=== PATIENT | male | born 1980 | race Native Hawaiian/Other Pacific Islander ===

== ENCOUNTER 2018-12-21 12:06 | Emergency (ER) | payer SELFPAY ==
[~2018-12-21] VITALS: Ht 172.7 cm; Wt 113.4 kg
[2018-12-21] MEDS ORDERED: REMERON (12:31)
[2018-12-21] MEDS ORDERED: BUSPIRONE HCL (12:32)
--- NOTE | 2018-12-21 12:39 | ED Cough/URI ---
General Chief Complaint: Cough/Cold/Flu Symptoms Stated Complaint: COUGH, LEFT SIDED Source: patient, family Exam Limitations: no limitations History of Present Illness Date Seen by Provider: Dec 21, 2018 Time Seen by Provider: 12:25 Initial Comments 38 yr old with hx of mild RT sx over the past few days but had improved until cough worsened yesterday. Now noting some increased congestion and pleuritic left sided chest pain. Not exertional. No fever/chills. Heavy cigarette smoker. No hx of CAD or other medical conditions other than bipolar disease. Timing/Duration: yesterday Severity/Quality: productive cough, blood streaked sputum Prior Episodes/Possible Cause: no prior episodes Modifying Factors: Improves With Activity, Improves With Coughing Associated Symptoms: chest pain/soreness Allergies and Home Medications Allergies Coded Allergies: No Known Drug Allergies (Unverified , 12/21/18) Patient Home Medication List Home Medication List Reviewed: Yes Review of Systems Review of Systems Constitutional: see HPI EENTM: see HPI; No blurred vision, No double vision, No throat pain Respiratory: see HPI, cough; No hemoptysis, No short of breath, No stridor Cardiovascular: see HPI; No edema, No palpitations, No syncope Gastrointestinal: no symptoms reported; No abdominal pain, No diarrhea, No nausea Genitourinary: no symptoms reported; No hematuria, No pain Musculoskeletal: no symptoms reported Skin: no symptoms reported Psychiatric/Neurological: See HPI; Denies Paresthesia, Denies Seizure, Denies Tingling Hematologic/Lymphatic: See HPI; Denies Anemia, Denies Blood Clots, Denies Other Immunological/Allergic: denies see HPI, denies transplant Past Hkqqxpj-Ppoldi-Bsqtup Hx Patient Social History Smoking Status: Heavy Tobacco Smoker Recent Foreign Travel: No Contact w/Someone Who Travel: No Physical Exam Vital Signs - First Documented 12/21/18 12:17 Temp 97.9 Pulse 93 Resp 20 B/P (MAP) 130/79 (96) Pulse Ox 98 O2 Delivery Room Air Capillary Refill : Height: '" Weight: lbs. oz. kg; BMI Method: General Appearance: WD/WN, no apparent distress Eyes: Bilateral Eye Normal Inspection, Bilateral Eye PERRL, Bilateral Eye EOMI HEENT: PERRL/EOMI, normal ENT inspection, TMs normal, pharynx normal Neck: non-tender, full range of motion, supple, normal inspection, carotid bruit Respiratory: no respiratory distress, no accessory muscle use, decreased breath sounds, rhonchi (bilaterally) Cardiovascular: normal peripheral pulses, regular rate, rhythm, no edema, no gallop, no JVD, no murmur Gastrointestinal: normal bowel sounds, non tender, soft, no organomegaly, no pulsatile mass Extremities: normal range of motion, non-tender, normal inspection, no pedal edema, no calf tenderness, normal capillary refill, pelvis stable 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, no motor/sensory deficits, alert, normal mood/affect, oriented x 3 Skin: normal color, warm/dry, cyanosis, cool, diaphoresis, damp Lymphatic: no adenopathy Progress/Results/Core Measures Suspected Sepsis SIRS Temperature: Pulse: Respiratory Rate: Laboratory Tests 12/21/18 13:35: White Blood Count 11.7H Blood Pressure / Mean: Laboratory Tests 12/21/18 13:35: Creatinine 0.89, Platelet Count 214 Results/Orders Lab Results Laboratory Tests Test 12/21/18 13:35 Range/Units White Blood Count 11.7 H 4.3-11.0 10^3/uL Red Blood Count 5.02 4.35-5.85 10^6/uL Hemoglobin 15.2 13.3-17.7 G/DL Hematocrit 45 40-54 % Mean Corpuscular Volume 90 80-99 FL Mean Corpuscular Hemoglobin 30 25-34 PG Mean Corpuscular Hemoglobin Concent 34 32-36 G/DL Red Cell Distribution Width 12.3 10.0-14.5 % Platelet Count 214 130-400 10^3/uL Mean Platelet Volume 11.4 H 7.4-10.4 FL Neutrophils (%) (Auto) 64 42-75 % Lymphocytes (%) (Auto) 27 12-44 % Monocytes (%) (Auto) 5 0-12 % Eosinophils (%) (Auto) 4 0-10 % Basophils (%) (Auto) 1 0-10 % Neutrophils # (Auto) 7.5 1.8-7.8 X 10^3 Lymphocytes # (Auto) 3.1 1.0-4.0 X 10^3 Monocytes # (Auto) 0.5 0.0-1.0 X 10^3 Eosinophils # (Auto) 0.4 H 0.0-0.3 10^3/uL Basophils # (Auto) 0.1 0.0-0.1 10^3/uL Sodium Level 142 135-145 MMOL/L Potassium Level 4.2 3.6-5.0 MMOL/L Chloride Level 104 98-107 MMOL/L Carbon Dioxide Level 23 21-32 MMOL/L Anion Gap 15 H 5-14 MMOL/L Blood Urea Nitrogen 9 7-18 MG/DL Creatinine 0.89 0.60-1.30 MG/DL Estimat Glomerular Filtration Rate > 60 BUN/Creatinine Ratio 10 Glucose Level 125 H 70-105 MG/DL Calcium Level 9.1 8.5-10.1 MG/DL My Orders Orders - SHORTY NEAL MD Basic Metabolic Panel (12/21/18 12:31) Cbc With Automated Diff (12/21/18 12:31) Chest Pa/Lat (2 View) (12/21/18 12:31) Ekg Tracing (12/21/18 12:31) Vital Signs/I&O 12/21/18 12:17 Temp 97.9 Pulse 93 Resp 20 B/P (MAP) 130/79 (96) Pulse Ox 98 O2 Delivery Room Air Capillary Refill : Progress Note : Time: 14:35 Progress Note Discussed findings with pt and parents. Will treat bronchitis with abx and cough med. ECG Initial ECG Impression Date: Dec 21, 2018 Initial ECG Impression Time: 12:55 Initial ECG Rate: 77 Initial ECG Rhythm: Normal Sinus Initial ECG Intervals: Normal Initial ECG Impression: Normal Initial ECG Comparisson: No Previous ECG Available Diagnostic Imaging Diagonstic Imaging: Xray Plain Films/CT/US/NM/MRI: chest Comments CHEST PA/LAT (2 VIEW) INDICATION: Left-sided pain. FINDINGS: The lungs are clear. The heart and vessels are normal. No effusion or pneumothorax. IMPRESSION: No acute appearing abnormality. Dictated on workstation # [id number] Dict: 12/21/18 1302 Trans: 12/21/18 1304 [id number] Interpreted by: HARLEEN DON Electronically signed by: Departure Impression Primary Impression: Bronchitis Disposition: 01 HOME, SELF-CARE Condition: Improved Departure-Patient Inst. Decision time for Depature: 14:36 Patient Instructions: Cough, Adult (DC), Acute Bronchitis, Adult (DC) Scripts D-Methorphan Hb/Prometh HCl (Promethazine-Dm Syrup) 118 Ml Syrup 10 ML PO QID PRN for cough, #120 ML Prov: SHORTY NEAL MD 12/21/18 Amoxicillin (Amoxicillin) 500 Mg Capsule 500 MG PO TID, #21 CAP 0 Refills Prov: SHORTY NEAL MD 12/21/18 SHORTY NEAL MD Dec 21, 2018 12:39
--- NOTE | 2018-12-21 13:05 | Diagnostic Imaging Report ---
INDICATION: Left-sided pain. FINDINGS: The lungs are clear. The heart and vessels are normal. No effusion or pneumothorax. IMPRESSION: No acute appearing abnormality. Dictated by: Dictated on workstation # [id number]
[2018-12-21 13:52] LABS: HEMATOCRIT 45 % (40-54); HEMOGLOBIN 15.2 G/DL (13.3-17.7); MEAN CORPUSCULAR HEMOGLOBIN 30 PG (25-34); MEAN CORPUSCULAR HGB CONC 34 G/DL (32-36); MEAN CORPUSCULAR VOLUME 90 FL (80-99); WHITE BLOOD COUNT 11.7 10^3/uL (4.3-11.0)
[2018-12-21 13:53] LABS: BASOPHILS % (AUTO) 1 % (0-10); EOSINOPHILS % (AUTO) 4 % (0-10); LYMPHOCYTES # (AUTO) 3.1 X 10^3 (1.0-4.0); LYMPHOCYTES % (AUTO) 27 % (12-44); MEAN PLATELET VOLUME 11.4 FL (7.4-10.4); MONOCYTES # (AUTO) 0.5 X 10^3 (0.0-1.0); MONOCYTES % (AUTO) 5 % (0-12); NEUTROPHILS # (AUTO) 7.5 X 10^3 (1.8-7.8); NEUTROPHILS % (AUTO) 64 % (42-75); PLATELET COUNT 214 10^3/uL (130-400); RED CELL DISTRIBUTION WIDTH 12.3 % (10.0-14.5)
[2018-12-21 13:54] LABS: BASOPHILS # (AUTO) 0.1 10^3/uL (0.0-0.1); EOSINOPHILS # (AUTO) 0.4 10^3/uL (0.0-0.3)
[2018-12-21 14:20] LABS: CARBON DIOXIDE 23 MMOL/L (21-32); CHLORIDE 104 MMOL/L (98-107); POTASSIUM 4.2 MMOL/L (3.6-5.0); SODIUM 142 MMOL/L (135-145)
[2018-12-21 14:21] LABS: BUN/CREATININE RATIO 10; CALCIUM 9.1 MG/DL (8.5-10.1); CREATININE SERUM 0.89 MG/DL (0.60-1.30); GFR ESTIMATED > 60; GLUCOSE 125 MG/DL (70-105)
[2018-12-21] MEDS ORDERED: AMOX500C2 PO (14:38)
[2018-12-21] MEDS ORDERED: D-ME118S7 PO (14:38)
[2018-12-21 14:59] VITALS: BP 128/80
== END 2018-12-21 14:47 | disposition home or self-care (01) ==
LOC: EDUNIT# 12:06 → ER FS 12:12
DX: J40 Bronchitis, not specified as acute or chronic (principal); F17.200 Nicotine dependence, unspecified, uncomplicated
CPT/HCPCS: 36415; 71046; 80048; 85025; 93005